=== PATIENT | female | born 1940 | race Caucasian/White ===

== ENCOUNTER 2019-10-05 04:41 | Inpatient (IN) ==
--- NOTE | 2019-09-24 11:29 | EKG Report ---
Test Performed on : 09/24/2019 11:14:46 AM Test Reason : PAT Blood Pressure : / mmHG Vent. Rate : 048 BPM Atrial Rate : 048 BPM P-R Int : 156 ms QRS Dur : 088 ms QT Int : 412 ms P-R-T Axes : 045 016 037 degrees QTc Int : 368 ms Critical Test Result: Low HR Sinus bradycardia. with sinus arrhythmia. Otherwise normal ECG No previous ECGs available Confirmed by Navya BLAS, Rickey ([id number]) on 09/25/2019 10:41:04 AM
[2019-09-24 12:02] LABS: BASO# 0.04 X1000 (0.0-0.2); BASO% 0.5 % (0.0-0.8); EOS# 0.19 X1000 (0.0-0.7); EOS% 2.5 % (0.0-10.0); HEMATOCRIT 40.9 % (37.0-47.0); HEMOGLOBIN 12.9 g/dL (12.0-16.0); IMM GRAN# 0.03 X1000 (0.0-0.04); IMM GRAN% 0.4 % (0.0-0.5); LYMPH# 1.61 X1000 (1.2-3.4); LYMPH% 20.9 % (20.5-51.1); MCH 31.1 PG (27-31); MCHC 31.5 g/dL (33-37); MCV 98.6 FL (81-99); MONO# 0.61 X1000 (0.11-0.59); MONO% 7.9 % (1.7-9.3); MPV 10.8 FL (7.4-10.4); NEUT# 5.21 X1000 (1.4-6.5); NEUT% 67.8 % (42.2-75.2); PLT 244 X1000 (130-400); RBC 4.15 XMIL (4.2-5.4); RDW 14.9 % (11.5-14.5); WBC 7.69 X1000 (4.8-10.8)
[2019-09-24 12:28] LABS: AGAP 11; BUN 13 mg/dL (8-22); CALCIUM 9.2 mg/dL (8.8-10.2); CHLORIDE 103 mmol/L (98-107); COSMO 279; CREATININE 0.9 mg/dL (0.5-0.9); ESTIMATED GFR > 60; GLUCOSE 86 mg/dL (70-104); POTASSIUM 4.7 mmol/L (3.5-5.1); SODIUM 140 mmol/L (136-145); TCO2 26 mmol/L (25-35)
--- NOTE | 2019-10-01 03:51 | HISTORY AND PHYSICAL ---
HISTORY: The patient is a 79-year-old female who was initially seen in May 2019 after being referred by Dr. Blas for advanced stage prolapse. Findings at that time was POP-Q stage IV prolapse with the leading edge of +4. At that time, we discussed pessary management, and she was going to return for pessary fitting. However, she did not keep that appointment and subsequently presented to the emergency room with urinary retention. The patient was again seen in our office, and we again discussed pessary management. However, I offered her surgical correction as well, and she has decided she wishes to proceed with surgical intervention. I also offered her an appointment with the physicians at [facility] and she declined. We discussed an obliterative procedure with placement of sling at length. She understands and is wishing to proceed with this. PAST MEDICAL HISTORY: Positive for type 1 diabetes, hypertension, and advanced stage prolapse. PAST SURGICAL HISTORY: Positive for vaginal hysterectomy; left neck surgery for blood clots, I suspicion this is a carotid endarterectomy; cholecystectomy, hemorrhoidectomy, 5 abdominal operations for hernia, and left shoulder surgery. OBSTETRICAL HISTORY: She is noted to be a para 4-0-0-4. CURRENT MEDICATIONS: Metformin 500, methotrexate 50, folic acid 1, Premarin cream, Lasix 40, lisinopril 5, atenolol 50. SOCIAL HISTORY: Positive for tobacco greater than 30 years. Negative EtOH or drugs. FAMILY HISTORY: Noncontributory. PHYSICAL EXAMINATION: GENERAL: BMI is 31. HEENT AND NECK: Normocephalic, atraumatic. PERRLA, EOMI. No thyromegaly. CARDIOVASCULAR: Regular rate and rhythm without murmur, gallop, or rub. PULMONARY: Clear to auscultation. ABDOMEN: Soft. GENITOURINARY: Again shows stage IV prolapse with the leading edge at +4. NEUROLOGIC: Afocal. EXTREMITIES: Without clubbing, cyanosis, or edema. ASSESSMENT AND PLAN: The patient is admitted at this time for colpectomy and midurethral sling with Obtryx. The risks and benefits were discussed at length. She understands and is wishing to proceed. cc: Tony Marvin MD
[2019-10-05] MEDS ORDERED: LR 1,000 ML ONE ×2 (07:04→10:11)
[2019-10-05] MEDS ORDERED: KEFZOL 1 GM/D5W 2 GM/100 ML IVPB ONE (07:04)
[2019-10-05] MEDS ORDERED: SENSORCAINE 0.5%-EPI 1:200,000 ONE (07:24)
[2019-10-05] MEDS ORDERED: D10W 500 ML ONE (07:24)
[2019-10-05] MEDS ORDERED: SODIUM CHLORIDE 0.9% ONE (07:24)
[2019-10-05] MEDS ORDERED: DIPRIVAN 1% ONE (07:28)
[2019-10-05] MEDS ORDERED: XYLOCAINE-MPF 2% ONE (07:29)
[2019-10-05] MEDS ORDERED: QUELICIN (DOSE) ONE (07:32)
[2019-10-05] MEDS ORDERED: SUFENTA ONE (07:34)
--- NOTE | 2019-10-05 07:51 | H&P REVIEW ---
H&P Update H&P Review: H&P was reviewed and patient was examined, No change has occurred in the patient's condition
[2019-10-05] MEDS ORDERED: SENSORCAINE-MPF 0.5%/EPI 1:200,000 ONE (08:47)
[2019-10-05] MEDS ORDERED: SODIUM CHLORIDE 0.9% 10 ML ONE (08:47)
[2019-10-05 09:51] LABS: URINE SOURCE CATH
[2019-10-05 10:09] LABS: BILIRUBIN URINE NEGATIVE (NEGATIVE); BLOOD URINE MODERATE (NEGATIVE); COLOR YELLOW; GLUCOSE URINE >1000 mg/dL (NEGATIVE); KETONE URINE NEGATIVE (NEGATIVE); LEUKOCYTES URINE LARGE (NEGATIVE); NITRITE URINE POSITIVE (NEGATIVE); PH URINE 6.5; PROTEIN URINE TRACE mg/dL (NEGATIVE); TURBIDITY URINE TURBID (CLEAR); UROBILINOGEN URINE NORMAL (NORMAL)
[2019-10-05] MEDS: DILAUDID ONE ×2 (10:10→10:20)
[2019-10-05] MEDS ORDERED: NORCO-5 ONE (10:11)
[2019-10-05 10:21] LABS: UR EPITHELIAL CELLS >10 /HPF (<10); URINE BACTERIA NEGATIVE /HPF; URINE RBC 20-40 /HPF (<10); URINE WBC TNTC /HPF (<10)
[2019-10-05 10:27] LABS: URINE CASTS NONE SEEN; URINE CRYSTALS NONE SEEN; URINE SMALL ROUND CELLS NONE SEEN; URINE YEAST PRESENT
--- NOTE | 2019-10-05 10:27 | OPERATIVE NOTE ---
PROCEDURE DATE: 10/05/2019 POSTOPERATIVE DIAGNOSIS: POP-Q stage IV prolapse, vault eversion. POSTOPERATIVE DIAGNOSIS: POP-Q stage IV prolapse, vault eversion. PROCEDURE PERFORMED: Colpectomy, mid urethral sling with Obtryx. SURGEON: Tony Marvin MD ANESTHESIA: General. ESTIMATED BLOOD LOSS: 50 mL. HISTORY: The patient is a 79-year-old who was referred to me by Dr. Blas from the [place], [place] area, who has advanced stage prolapse and has failed to traditional conservative management with pessary. She is wishing to proceed to surgical intervention. OPERATIVE FINDINGS: Patient is found have POP-Q stage IV prolapse with normal bladder and efflux of urine from both ureters after completion of the procedure. She was found to have a significant amount of purulence in the urine consistent with acute urinary tract infection. DESCRIPTION OF PROCEDURE: The patient was taken to the operating room, placed in supine position after adequate general anesthesia obtained. She was placed in the [facility] cane stirrups, and vagina and perineum were prepped and draped in the usual fashion. At this time, the apex of the vagina was identified and grasped at both angles with Allis clamps, and we then dried the vagina and perineum and vulvar region off. We then used a marking pen to demarcate quartiles of the vagina beginning at the urethrovesical neck and extending down to the perineal body. After doing this, we then started on the anterior 2 quartiles by doing a hydrodissection with 0.25% Marcaine diluted 50% with normal saline. We used approximately 50-60 mL of hydro dissecting this area trying to do a split-thickness type of dissection in order to retain some of the pubovesical cervical fascia within the vaginal wall. We then removed the anterior 2 quadrants of the vagina. We turned our attention towards the posterior 2 quadrants and in similar fashion did a hydrodissection and then used sharp dissection again with traction, countertraction, removed the 2 posterior quadrants of the vagina. After doing this, we then began with reconstruction using pursestring 2.0 Vicryl ligatures. However, prior to doing this, we were able to identify an extremely large enterocele and this was inadvertently opened sharply with Metzenbaum scissors during our dissection, so we reached up to the neck of the enterocele development and placed a pursestring Tycron suture into this area to help with support above. Upon doing this, we then just had the remaining tissue below the herniated area, and we began with our typical reconstruction using pursestring 2.0 Vicryl ligatures in successive fashion. We did this until we had complete imbrication of all of the lesion. At this time, we then turned our attention towards reclosure with the vaginal mucosa using interrupted [id number] sutures of 0 Vicryl ligature. We had excellent support at this point. We turned our attention towards placement of the sling. The urethra was grasped proximally and distally with Allis clamps. We injected another 6 to 8 mL of the same local anesthetic dilution. We made the incision sagittally and dissected up towards the ischial pubic ramus on each side. Based on the bony landmarks of the ramus as well as the insertion of the adductor longus, a stab incision was initially made on the left-hand side. Halo device was introduced through this incision through the obturator canal to the friction saw operator's finger, which directed the needle out. The mesh was attached to it and it was retracted back through the skin. This was performed on the contralateral side in a similar fashion. At this time, we emptied the bladder of all fluid. In doing so, we noted marked purulence consistent with probable acute UTI. We filled the bladder with D10 to approximately 300 mL and closely inspected the bladder throughout. Mucosa was found to be within normal limits except for the plaques of purulence consistent with UTI. We also noted that both ureters were effluxing urine without any difficulty and there was no evidence of any mesh or sutures. The cystoscope was removed. Yesi clamp was placed in the mid urethral position. The tape was brought out the Yesi clamp. Blue tag was excised. The sheaths were easily removed with no tension on the mesh whatsoever. The mid urethral incision was closed a running 2.0 Vicryl ligature. Denise catheter was placed. Output was noted to be clear consistent with the D10 and with our prior washing out of the bladder from the prior purulence. The patient was taken out of the dorsal lithotomy position. She was awakened, taken to recovery room with vital signs stable. Sponge count, instrument count, and needle count were correct x3. cc: Tony Marvin MD [facility]OSPITALCharlie
[2019-10-05] MEDS ORDERED: NORCO-5 PO PRN (10:49)
[2019-10-05] MEDS ORDERED: LASIX PO PRN (10:49)
[2019-10-05] MEDS: LR 1,000 ML IV SCH ×3 (12:09→20:07)
[2019-10-05] MEDS: PERIDEX MT SCH ×2 (12:09→21:15)
[2019-10-05] MEDS: TENORMIN PO SCH (12:10)
[2019-10-05] MEDS: GLUCOPHAGE PO SCH ×2 (12:10→17:22)
[2019-10-05] MEDS: PRINIVIL PO SCH (12:10)
[2019-10-05] MEDS: COLACE PO SCH ×2 (12:10→21:15)
[2019-10-05] MEDS ORDERED: CIPRO PO ONE (12:22)
--- NOTE | 2019-10-05 13:19 | PROGRESS NOTE ---
DATE: 10/05/2019 DATE AND TIME OF VISIT: On 10/05/2019 at approximately 12:20 p.m. SUBJECTIVE: The patient is alert and oriented x3 sitting, in the bed and eating her clear liquid lunch. Her family is with her. OBJECTIVE: Afebrile, vital signs stable. Urine output is clear. ASSESSMENT AND PLAN: 1. Acute urinary tract infection. Cultures pending at this time. Because of the concern regarding possible neurologic changes from the urinary tract infection versus surgical changes, I have decided to proceed with antibiotic therapy. I discussed this with the family and they are in agreement. 2. Postoperative recovery. Going well at this point. We will undergo a voiding trial in the morning and plan on morning discharge if the patient has a good evening. cc: Tony Marvin MD
[2019-10-05] MEDS: TORADOL IV SCH ×2 (15:24→21:15)
[2019-10-05] MEDS: CIPRO PO SCH (21:15)
[2019-10-06] MEDS: LR 1,000 ML IV SCH ×3 (00:07→11:12)
[2019-10-06] MEDS: TORADOL IV SCH ×2 (04:33→09:28)
[2019-10-06] MEDS: TENORMIN PO SCH (09:28)
[2019-10-06] MEDS: COLACE PO SCH (09:28)
[2019-10-06] MEDS: PRINIVIL PO SCH (09:28)
[2019-10-06] MEDS: GLUCOPHAGE PO SCH (09:28)
[2019-10-06] MEDS: PERIDEX MT SCH (09:28)
[2019-10-06] MEDS: CIPRO PO SCH (09:28)
--- NOTE | 2019-10-06 11:11 | DISCHARGE SUMMARY ---
ADMISSION DATE: 10/05/2019 DISCHARGE DATE: 10/06/2019 PRINCIPAL DIAGNOSIS: POP-Q stage 4 pelvic organ prolapse. PROCEDURE: Colpectomy and mid urethral sling with Obtryx. HISTORY: The patient is a 79-year-old female who had been followed conservatively with pessary management for symptomatic pelvic organ prolapse. She was referred to me by Dr. Blas out of [place], [place]. The patient was admitted, and underwent the above surgical procedure. Blood loss at time of surgery was approximately 30-40 mL. Her postoperative course has been uncomplicated. She is currently undergoing voiding trial, and will be discharged home with instructions for followup in 3 weeks. DISCHARGE MEDICATIONS: [place] and [place]. DISCHARGE INSTRUCTIONS: She was instructed on regular diet and decreased activity. cc: Tony Marvin MD
[2019-10-06 11:33] VITALS: BP 152/44
[2019-10-07] MEDS ORDERED: METHOTREXATE SUBQ SCH (09:00)
== END 2019-10-06 12:10 | disposition home or self-care (01) ==
LOC: SURHOLD 04:41 → 4N 08:32 → EDSTATUS 12:00
PROVIDERS: ADMIT Obstetrics & Gynecology; ATTEND Obstetrics & Gynecology